=== PATIENT | male | born 1960 | race Caucasian/White ===

== ENCOUNTER → 2024-08-05 | Outpatient (CLI) | payer BC ==
--- NOTE | 2024-08-05 15:05 | XR ---
EXAMINATION TYPE: XR KUB DATE OF EXAM: 08/05/2024 2:28 PM COMPARISON: None CLINICAL INDICATION: Male, 63 years old with history of CALCULUS OF URETER; PHH, evaluate renal stone s, pain TECHNIQUE: One radiographic view of the abdomen was obtained. FINDINGS: Nonobstructive bowel gas pattern. Scattered mild to moderate stool. No suspicious calcification is cl early identified. Small pelvic phleboliths. IMPRESSION: No suspicious calcification is clearly identified radiographically. Small pelvic phleboliths. [facility], , 08/05/2024 3:03 PM
== END | disposition home or self-care (01) ==
LOC: RADXRMAIN 14:14
PROVIDERS: ATTEND Urology
DX: N20.1 Calculus of ureter (principal)
CPT/HCPCS: 74018

== ENCOUNTER → 2024-08-29 | Outpatient (CLI) | payer BC ==
--- NOTE | 2024-08-29 12:36 | XR ---
EXAMINATION TYPE: XR KUB DATE OF EXAM: 08/29/2024 12:16 PM COMPARISON: 08/05/2024 CLINICAL INDICATION: Male, 63 years old with history of N20.1 Calculus ureter, TECHNIQUE: XR KUB view(s) obtained. FINDINGS: There is a normal bowel gas pattern. Psoas margins are normal. No organomegaly is present. Calcifications in the left hemipelvis could be distal ureteral stones or phleboliths. One of these wa s present before. IMPRESSION: 1. New calcifications inferior left hemipelvis. Distal ureteral stone should be considered. [facility], , 08/29/2024 12:34 PM
== END | disposition home or self-care (01) ==
LOC: RADXRMAIN 11:57
PROVIDERS: ATTEND Urology
DX: N20.1 Calculus of ureter (principal); N28.89 Other specified disorders of kidney and ureter
CPT/HCPCS: 74018